=== PATIENT | female | born 1965 | race Caucasian/White ===

== ENCOUNTER 2019-09-10 15:48 | Emergency (ER) | payer OTHER ==
[~2019-09-10] VITALS: Ht 167.6 cm; Wt 80.3 kg
[2019-09-10] MEDS ORDERED: NORFLEX100MG (16:02)
== END 2019-09-10 17:23 | disposition home or self-care (01) ==
LOC: ER 15:48
DX: R07.89 Other chest pain (principal); M94.0 Chondrocostal junction syndrome [Tietze]; M62.838 Other muscle spasm

== ENCOUNTER 2019-11-29 07:45 | Outpatient (CLI) | payer OTHER ==
[~2019-11-29 07:45] MED LIST: NORFLEX100MG
== END 2019-11-29 07:49 | disposition home or self-care (01) ==
LOC: LAB 07:45
PROVIDERS: ATTEND General Practice
DX: E03.8 Other specified hypothyroidism (principal); Z12.89 Encounter for screening for malignant neoplasm of other sites; R53.81 Other malaise; R53.83 Other fatigue; E11.9 Type 2 diabetes mellitus without complications; K59.00 Constipation, unspecified; E55.9 Vitamin D deficiency, unspecified; E78.2 Mixed hyperlipidemia; D51.0 Vitamin B12 deficiency anemia due to intrinsic factor deficiency

== ENCOUNTER 2019-12-04 09:11 | Outpatient (CLI) | payer OTHER | END 2019-12-04 09:16 | disposition home or self-care (01) | LOC: LAB 09:11 | PROVIDERS: ATTEND General Practice | DX: R53.81 Other malaise (principal); R53.83 Other fatigue; K59.09 Other constipation; E55.9 Vitamin D deficiency, unspecified; E78.2 Mixed hyperlipidemia; E03.8 Other specified hypothyroidism; D51.0 Vitamin B12 deficiency anemia due to intrinsic factor deficiency; Z12.89 Encounter for screening for malignant neoplasm of other sites ==

== ENCOUNTER 2020-05-04 00:10 | Emergency (ER) | payer OTHER ==
[~2020-05-04] VITALS: Ht 167.6 cm; Wt 81.6 kg
[2020-05-04] MEDS ORDERED: SKELAXIN800 MG PO (05:24)
[2020-05-04] MEDS ORDERED: ACETAMINOPHEN500 M1 PO (05:24)
== END 2020-05-04 05:48 | disposition home or self-care (01) ==
LOC: ER 00:10
DX: M54.2 Cervicalgia (principal); M25.512 Pain in left shoulder; M54.6 Pain in thoracic spine; Z03.818 Encounter for observation for suspected exposure to other biological agents ruled out

== ENCOUNTER 2020-12-19 07:38 | Outpatient (CLI) | payer OTHER ==
[~2020-12-19 07:38] MED LIST changes: +ACETAMINOPHEN500 M1 PO; +SKELAXIN800 MG PO; +TYLENOL 120MG120 MG
== END 2020-12-19 07:39 | disposition home or self-care (01) ==
LOC: LAB 07:38
PROVIDERS: ATTEND Psychiatry & Neurology Neurology
DX: E03.8 Other specified hypothyroidism (principal); E78.2 Mixed hyperlipidemia; E11.9 Type 2 diabetes mellitus without complications; M79.7 Fibromyalgia

== ENCOUNTER 2021-05-06 08:40 | Outpatient (CLI) | payer OTHER | END 2021-05-06 08:42 | disposition home or self-care (01) | LOC: NUCLEAR 08:40 | PROVIDERS: ATTEND General Practice | DX: D18.09 Hemangioma of other sites (principal); M25.50 Pain in unspecified joint ==

== ENCOUNTER 2021-05-26 08:07 | Outpatient (CLI) | payer OTHER | END 2021-05-26 08:08 | disposition home or self-care (01) | LOC: LAB 08:07 | PROVIDERS: ATTEND General Practice | DX: E78.2 Mixed hyperlipidemia (principal) ==

== ENCOUNTER 2021-06-23 08:02 | Outpatient (CLI) | payer OTHER | END 2021-06-23 08:14 | disposition home or self-care (01) | LOC: SONOGRAMA 08:02 | PROVIDERS: ATTEND General Practice | DX: R10.11 Right upper quadrant pain (principal); N23 Unspecified renal colic ==

== ENCOUNTER 2021-08-19 06:00 | Day surgery (SDC) | payer OTHER ==
[~2021-08-19 06:00] MED LIST changes: +LIPIT PO
== END 2021-08-19 15:00 | disposition home or self-care (01) ==
LOC: CIR.AMB 06:00
PROVIDERS: ATTEND Surgery
DX: K80.10 Calculus of gallbladder with chronic cholecystitis without obstruction (principal); K82.8 Other specified diseases of gallbladder; Z88.0 Allergy status to penicillin; Z88.8 Allergy status to other drugs, medicaments and biological substances; M79.7 Fibromyalgia; F32.A Depression, unspecified; Z20.822 Contact with and (suspected) exposure to COVID-19

== ENCOUNTER 2021-12-23 08:49 | Outpatient (CLI) | payer OTHER | END 2021-12-23 08:59 | disposition home or self-care (01) | LOC: MAMO-SONO 08:49 | DX: Z12.39 Encounter for other screening for malignant neoplasm of breast (principal) ==

== ENCOUNTER 2022-02-10 07:42 | Outpatient (CLI) | payer OTHER | END 2022-02-10 07:43 | disposition home or self-care (01) | LOC: LAB 07:42 | PROVIDERS: ATTEND General Practice | DX: E78.2 Mixed hyperlipidemia (principal); R30.0 Dysuria; E55.9 Vitamin D deficiency, unspecified; E11.69 Type 2 diabetes mellitus with other specified complication; E03.9 Hypothyroidism, unspecified ==

== ENCOUNTER 2022-08-12 08:25 | Outpatient (CLI) | payer OTHER | END 2022-08-12 08:28 | disposition home or self-care (01) | LOC: NUCLEAR 08:25 | PROVIDERS: ATTEND General Practice | DX: I73.89 Other specified peripheral vascular diseases (principal); M79.661 Pain in right lower leg ==

== ENCOUNTER → 2022-08-12 | Outpatient (CLI) | payer OTHER | END | disposition home or self-care (01) | LOC: LAB 07:26 | DX: E78.2 Mixed hyperlipidemia (principal); R30.0 Dysuria; E03.9 Hypothyroidism, unspecified; E11.69 Type 2 diabetes mellitus with other specified complication; E55.9 Vitamin D deficiency, unspecified ==

== ENCOUNTER 2023-01-12 06:39 | Outpatient (CLI) | payer OTHER ==
[2023-01-12 07:54] LABS: URINE APPEARANCE Clear; URINE BILIRRUBIN Negative (NEGATIVE); URINE BLOOD Negative; URINE COLOR Yellow; URINE GLUCOSE Negative (NEGATIVE); URINE LEUKOCYTE Trace; URINE NITRATE Negative; URINE PROTEIN Negative (NEGATIVE); URINE UROBILINOGEN 0.2 E.U./dl
[2023-01-12 07:57] LABS: URINE BACTERIA 40.3 uL (0.0-1933); URINE EPITHELIAL CELLS 23.4 uL (0.0-38.8); URINE RBC 14.8 uL (0.0-20.8); URINE WBC 9.2 uL (0.0-23.2)
[2023-01-12 08:11] LABS: HEMATOCRIT 40.5 % (36.0-45.00); HEMOGLOBIN 13.9 g/dL (12.0-15.00); MEAN CELL VOLUME 89.6 fL (80.00-100.00); MEAN CORPUSCULAR HEMOGLOBIN 30.7 pg (27.00-32.0); MEAN CORPUSCULAR HGB CONC 34.3 g/dl (32.0-36.0); PLATELET COUNT 191 K/uL (150-450); RED BLOOD COUNT 4.52 M/uL (4.00-6.00); RED CELL DISTRIBUTION WIDTH 12.5 % (11.5-14.5)
[2023-01-12 09:03] LABS: ALBUMIN 3.5 gm/dL (3.4-5.0); BILIRUBIN TOTAL 0.49 mg/dL (0.3-1.2); CALCIUM 9.4 mg/dL (8.5-10.1); CHOL HDL RATIO 3.7 (0-5.0); CREATININE SERUM 0.9 mg/dL (0.55-1.02); FREE TRIODOTIRONINE 2.12 pg/ml (2.18-3.98); GFR 64.54; GLOBULINA 3.7 G/DL (2.4-3.5); POTASSIUM 3.32 mEq/L (3.5-5.1); T4 FREE 0.93 NG/ML (0.76-1.46); TOTAL PROTEIN 7.2 gm/dL (6.4-8.2); TSH 4.74 uIU/mL (0.358-3.74)
== END 2023-01-12 06:40 | disposition home or self-care (01) ==
LOC: LAB 06:39
PROVIDERS: ATTEND General Practice
DX: R30.0 Dysuria (principal); E03.9 Hypothyroidism, unspecified; E11.69 Type 2 diabetes mellitus with other specified complication; E55.9 Vitamin D deficiency, unspecified; Z88.6 Allergy status to analgesic agent

== ENCOUNTER 2023-01-12 08:24 | Outpatient (CLI) | payer OTHER | END 2023-01-12 08:30 | disposition home or self-care (01) | LOC: MAMO-SONO 08:24 | PROVIDERS: ATTEND General Practice | DX: Z12.31 Encounter for screening mammogram for malignant neoplasm of breast (principal); Z12.39 Encounter for other screening for malignant neoplasm of breast ==

== ENCOUNTER → 2023-03-25 06:34 | Outpatient (CLI) | payer OTHER ==
[2023-03-25 07:21] LABS: HEMATOCRIT 42.3 % (36.0-45.00); HEMOGLOBIN 14.5 g/dL (12.0-15.00); MEAN CELL VOLUME 89.5 fL (80.00-100.00); MEAN CORPUSCULAR HEMOGLOBIN 30.6 pg (27.00-32.0); MEAN CORPUSCULAR HGB CONC 34.2 g/dl (32.0-36.0); PLATELET COUNT 205 K/uL (150-450); RED BLOOD COUNT 4.72 M/uL (4.00-6.00); RED CELL DISTRIBUTION WIDTH 12.2 % (11.5-14.5)
[2023-03-25 07:23] LABS: PH,URINE 5.5 (5.0-8.0); URINE APPEARANCE Clear; URINE BILIRRUBIN Negative (NEGATIVE); URINE BLOOD Negative; URINE COLOR Yellow; URINE GLUCOSE Negative (NEGATIVE); URINE LEUKOCYTE Negative; URINE NITRATE Negative; URINE PROTEIN Negative (NEGATIVE); URINE UROBILINOGEN 0.2 E.U./dl
[2023-03-25 07:26] LABS: URINE BACTERIA 15.1 uL (0.0-1933); URINE EPITHELIAL CELLS 5.5 uL (0.0-38.8); URINE RBC 4.3 uL (0.0-20.8); URINE WBC 3.2 uL (0.0-23.2)
[2023-03-25 08:03] LABS: ALBUMIN 4.1 gm/dL (3.4-5.0); BILIRUBIN TOTAL 0.56 mg/dL (0.3-1.2); CALCIUM 9.2 mg/dL (8.5-10.1); CHOL HDL RATIO 2.5 (0-5.0); CREATININE SERUM 0.81 mg/dL (0.55-1.02); FREE TRIODOTIRONINE 2.43 pg/ml (2.18-3.98); GFR 72.88; GLOBULINA 3.3 G/DL (2.4-3.5); POTASSIUM 3.56 mEq/L (3.5-5.1); T4 FREE 1.03 NG/ML (0.76-1.46); TOTAL PROTEIN 7.4 gm/dL (6.4-8.2); TSH 1.38 uIU/mL (0.358-3.74)
== END | disposition home or self-care (01) ==
LOC: LAB 06:34
PROVIDERS: ATTEND General Practice
DX: E78.2 Mixed hyperlipidemia (principal); R30.0 Dysuria; E03.9 Hypothyroidism, unspecified; E11.9 Type 2 diabetes mellitus without complications; E55.9 Vitamin D deficiency, unspecified

== ENCOUNTER → 2023-06-07 07:31 | Outpatient (CLI) | payer OTHER ==
[2023-06-07 08:57] LABS: URINE APPEARANCE Clear; URINE BILIRRUBIN Negative (NEGATIVE); URINE BLOOD Negative; URINE COLOR Yellow; URINE GLUCOSE Negative (NEGATIVE); URINE LEUKOCYTE Trace; URINE NITRATE Negative; URINE PROTEIN Negative (NEGATIVE); URINE UROBILINOGEN 0.2 E.U./dl
[2023-06-07 08:58] LABS: URINE BACTERIA 49.1 uL (0.0-1933); URINE EPITHELIAL CELLS 15.7 uL (0.0-38.8); URINE RBC 2.4 uL (0.0-20.8); URINE WBC 6.4 uL (0.0-23.2)
[2023-06-07 09:18] LABS: HEMOGLOBIN 14.7 g/dL (12.0-15.00); MEAN CELL VOLUME 88.1 fL (80.00-100.00); MEAN CORPUSCULAR HEMOGLOBIN 30.9 pg (27.00-32.0); PLATELET COUNT 186 K/uL (150-450); RED BLOOD COUNT 4.77 M/uL (4.00-6.00); RED CELL DISTRIBUTION WIDTH 12.4 % (11.5-14.5)
[2023-06-07 09:38] LABS: ALBUMIN 3.8 gm/dL (3.4-5.0); BILIRUBIN TOTAL 0.54 mg/dL (0.3-1.2); CALCIUM 9.5 mg/dL (8.5-10.1); CHOL HDL RATIO 5.1 (0-5.0); CREATININE SERUM 0.83 mg/dL (0.55-1.02); FREE TRIODOTIRONINE 2.74 pg/ml (2.18-3.98); GFR 70.86; GLOBULINA 3.6 G/DL (2.4-3.5); POTASSIUM 4.17 mEq/L (3.5-5.1); T4 FREE 0.86 NG/ML (0.76-1.46); TOTAL PROTEIN 7.4 gm/dL (6.4-8.2); TSH 2.91 uIU/mL (0.358-3.74)
== END | disposition home or self-care (01) ==
LOC: LAB 07:31
DX: E78.2 Mixed hyperlipidemia (principal); R30.0 Dysuria; E03.9 Hypothyroidism, unspecified; E11.69 Type 2 diabetes mellitus with other specified complication; E55.9 Vitamin D deficiency, unspecified

== ENCOUNTER 2023-12-22 06:40 | Outpatient (CLI) | payer OTHER ==
[2023-12-22 09:00] LABS: CHOL HDL RATIO 4.9 (0-5.0)
== END 2023-12-22 06:44 | disposition home or self-care (01) ==
LOC: LAB 06:40
PROVIDERS: ATTEND General Practice
DX: E78.2 Mixed hyperlipidemia (principal)

== ENCOUNTER → 2024-04-06 07:13 | Outpatient (CLI) | payer OTHER ==
[2024-04-06 07:40] LABS: URINE APPEARANCE Clear; URINE BILIRRUBIN Negative (NEGATIVE); URINE BLOOD Negative; URINE COLOR Yellow; URINE GLUCOSE Negative (NEGATIVE); URINE KETONE Negative (NEGATIVE); URINE LEUKOCYTE Negative; URINE NITRATE Negative; URINE PROTEIN Negative (NEGATIVE); URINE UROBILINOGEN 0.2 E.U./dl
[2024-04-06 07:42] LABS: URINE BACTERIA 35.4 uL (0.0-1933); URINE EPITHELIAL CELLS 4.4 uL (0.0-38.8); URINE RBC 6.1 uL (0.0-20.8)
[2024-04-06 07:49] LABS: URINE CAST 0.14 uL (0.0-1.40)
[2024-04-06 07:50] LABS: HEMATOCRIT 42.6 % (36.0-45.00); HEMOGLOBIN 14.6 g/dL (12.0-15.00); MEAN CELL VOLUME 91.5 fL (80.00-100.00); MEAN CORPUSCULAR HEMOGLOBIN 31.3 pg (27.00-32.0); MEAN CORPUSCULAR HGB CONC 34.2 g/dl (32.0-36.0); PLATELET COUNT 231 K/uL (150-450); RED BLOOD COUNT 4.66 M/uL (4.00-6.00); RED CELL DISTRIBUTION WIDTH 12.7 % (11.5-14.5)
[2024-04-06 09:29] LABS: ALBUMIN 3.6 gm/dL (3.4-5.0); BILIRUBIN TOTAL 0.75 mg/dL (0.3-1.2); CALCIUM 9.3 mg/dL (8.5-10.1); CHOL HDL RATIO 4.3 (0-5.0); CREATININE SERUM 0.83 mg/dL (0.55-1.02); FREE TRIODOTIRONINE 3.11 pg/ml (2.18-3.98); GFR 70.61; GLOBULINA 3.1 G/DL (2.4-3.5); POTASSIUM 3.7 mEq/L (3.5-5.1); T4 FREE 0.99 NG/ML (0.76-1.46); TOTAL PROTEIN 6.7 gm/dL (6.4-8.2)
[2024-04-06 09:32] LABS: TSH 6.16 uIU/mL (0.358-3.74)
== END | disposition home or self-care (01) ==
LOC: LAB 07:13
PROVIDERS: ATTEND General Practice
DX: E55.9 Vitamin D deficiency, unspecified (principal); R80.9 Proteinuria, unspecified; E03.9 Hypothyroidism, unspecified; E78.2 Mixed hyperlipidemia; R30.0 Dysuria; E11.69 Type 2 diabetes mellitus with other specified complication

== ENCOUNTER 2024-05-25 08:43 | Outpatient (CLI) | payer OTHER | END 2024-05-25 08:52 | disposition home or self-care (01) | LOC: MAMO-SONO 08:43 | PROVIDERS: ATTEND General Practice | DX: Z12.31 Encounter for screening mammogram for malignant neoplasm of breast (principal); Z12.39 Encounter for other screening for malignant neoplasm of breast ==

== ENCOUNTER → 2024-06-26 07:16 | Outpatient (CLI) | payer OTHER ==
[2024-06-29 13:10] LABS: sjogrens ssa < 0.2 AI (0.0-0.9); sjogrens ssb < 0.2 AI (0.0-0.9)
[2024-06-29 15:06] LABS: CYCLIC CITRULLINE PEPTIDE 9 units (0-19)
== END | disposition home or self-care (01) ==
LOC: LAB 07:16
PROVIDERS: ATTEND Internal Medicine Rheumatology
DX: M06.4 Inflammatory polyarthropathy (principal); M05.79 Rheumatoid arthritis with rheumatoid factor of multiple sites without organ or systems involvement; M35.01 Sjogren syndrome with keratoconjunctivitis

== ENCOUNTER 2024-06-26 08:30 | Outpatient (CLI) | payer OTHER | END 2024-06-26 08:31 | disposition home or self-care (01) | LOC: NUCLEAR 08:30 | PROVIDERS: ATTEND Internal Medicine Rheumatology | DX: M81.0 Age-related osteoporosis without current pathological fracture (principal) ==

== ENCOUNTER 2024-07-20 07:26 | Outpatient (CLI) | payer OTHER ==
[2024-07-20 09:22] LABS: FREE TRIODOTIRONINE 2.6 pg/ml (2.18-3.98); T4 FREE 0.88 NG/ML (0.76-1.46); TSH 2.16 uIU/mL (0.358-3.74)
== END 2024-07-20 07:35 | disposition home or self-care (01) ==
LOC: LAB 07:26
DX: E03.9 Hypothyroidism, unspecified (principal)

== ENCOUNTER 2024-11-07 07:23 | Outpatient (CLI) | payer OTHER ==
[2024-11-07 07:55] LABS: URINE APPEARANCE Clear; URINE BILIRRUBIN Negative (NEGATIVE); URINE BLOOD Negative; URINE COLOR Yellow; URINE GLUCOSE Negative (NEGATIVE); URINE KETONE Negative (NEGATIVE); URINE LEUKOCYTE Negative; URINE NITRATE Negative; URINE PROTEIN Negative (NEGATIVE); URINE UROBILINOGEN 0.2 E.U./dl
[2024-11-07 07:57] LABS: URINE BACTERIA 26.3 uL (0.0-1933); URINE EPITHELIAL CELLS 5.6 uL (0.0-38.8); URINE RBC 12.7 uL (0.0-20.8); URINE WBC 2.0 uL (0.0-23.2)
[2024-11-07 08:00] LABS: BASO % 0.6 % (0.1-1.2); EOS # 0.05 (0.04-0.54); EOS % 1.5 % (0.7-7.0); LYMPH # 1.26 (1.18-3.74); LYMPH % 37.0 % (19.3-53.1); MEAN PLATELET VOLUME 10.90 fl (9.4-12.4); MONO # 0.19 (0.24-0.82); MONO % 5.6 % (4.7-12.5); NEUT # 1.88 (1.56-6.13); NEUT % 55.0 % (34.0-71.1); RED CELL DISTRIBUTION WIDTH 11.6 % (11.6-14.4)
[2024-11-07 08:04] LABS: URINE CAST 0.00 uL (0.0-1.40)
[2024-11-07 08:15] LABS: ERYTHROCYTE SEDIMENTATION RATE 4 mm/hr (0-30)
[2024-11-07 08:49] LABS: ALT/SGPT 26.0 U/L (12-78); AST/SGOT 16.0 U/L (15-37); BILIRUBIN TOTAL 0.47 mg/dL (0.3-1.2); BUN CREA RATIO 14.0 (7.0-25.0); CHOL HDL RATIO 3.1 (0-5.0); CREATININE SERUM 0.83 mg/dL (0.55-1.02); GFR 70.36; GLOBULINA 3.0 G/DL (2.4-3.5); GLUCOSE FASTING 110.0 mg/dL (65-100); HDL 68.0 mg/dl (40-60); LDL 122.0 mg/dl (0-130); OSMOLALITY SERUM 287.0 MOSM/KG (275-295); TSH 2.32 uIU/mL (0.358-3.74); VLDL 21.0 (0-39)
== END 2024-11-07 07:29 | disposition home or self-care (01) ==
LOC: LAB 07:23
DX: M06.4 Inflammatory polyarthropathy (principal); I10 Essential (primary) hypertension; E78.2 Mixed hyperlipidemia; E03.2 Hypothyroidism due to medicaments and other exogenous substances

== ENCOUNTER 2024-12-27 05:57 | Emergency (ER) | payer OTHER ==
[~2024-12-27] VITALS: Ht 167.6 cm; Wt 81.2 kg
[2024-12-27] MEDS ORDERED: [UNRECOGNIZED DRUG - OTHER] (06:10)
[2024-12-27] MEDS ORDERED: FAMOtidine 10 MG/ML (4ML VIAL) IV PUSH STA (07:31)
[2024-12-27] MEDS ORDERED: ORPHENADRINE CITRATE 30 MG/ML AMPUL IM STA (07:32)
[2024-12-27] MEDS ORDERED: ONDANSETRON HCL 2 MG/ML VIAL IV STA (07:32)
[2024-12-27] MEDS ORDERED: DEXAMETHASONE SODIUM PHOSPHATE 4 MG/ML VIAL IM STA (07:33)
[2024-12-27] MEDS ORDERED: ORPHENADRINE CITRATE 30 MG/ML AMPUL ONE (07:40)
[2024-12-27] MEDS ORDERED: DEXAMETHASONE SODIUM PHOSPHATE 4 MG/ML VIAL ONE (07:40)
[2024-12-27] MEDS ORDERED: ONDANSETRON HCL 2 MG/ML VIAL ONE (07:40)
[2024-12-27] MEDS ORDERED: FAMOTIDINE/PF 20 MG/2 ML VIAL ONE (07:41)
[2024-12-27 08:26] LABS: BASO % 0.8 % (0.1-1.2); EOS # 0.03 (0.04-0.54); EOS % 0.8 % (0.7-7.0); LYMPH # 1.07 (1.18-3.74); LYMPH % 29.7 % (19.3-53.1); MEAN PLATELET VOLUME 11.10 fl (9.4-12.4); MONO # 0.13 (0.24-0.82); MONO % 3.6 % (4.7-12.5); NEUT # 2.34 (1.56-6.13); NEUT % 65.1 % (34.0-71.1); RED CELL DISTRIBUTION WIDTH 11.7 % (11.6-14.4)
[2024-12-27 09:11] LABS: ALT/SGPT 24.0 U/L (12-78); AST/SGOT 16.0 U/L (15-37); BILIRUBIN TOTAL 0.5 mg/dL (0.3-1.2); BUN CREA RATIO 15.0 (7.0-25.0); CREATININE SERUM 0.8 mg/dL (0.55-1.02); GFR 73.41; GLOBULINA 3.3 G/DL (2.4-3.5); GLUCOSE FASTING 122.0 mg/dL (65-100); OSMOLALITY SERUM 282.0 MOSM/KG (275-295)
== END 2024-12-27 09:48 | disposition home or self-care (01) ==
LOC: ER 05:57
PROVIDERS: General Practice
DX: R10.84 Generalized abdominal pain (principal); M25.511 Pain in right shoulder; M25.512 Pain in left shoulder; K59.00 Constipation, unspecified; R07.89 Other chest pain; Z88.6 Allergy status to analgesic agent; Z88.0 Allergy status to penicillin; Z91.014 Allergy to mammalian meats; Z91.013 Allergy to seafood

== ENCOUNTER 2025-01-16 06:16 | Outpatient (CLI) | payer OTHER ==
[~2025-01-16 06:16] MED LIST changes: +[UNRECOGNIZED DRUG - OTHER]
[2025-01-16 07:51] LABS: BASO % 0.5 % (0.1-1.2); EOS # 0.04 (0.04-0.54); EOS % 1.1 % (0.7-7.0); LYMPH # 1.24 (1.18-3.74); LYMPH % 33.2 % (19.3-53.1); MEAN PLATELET VOLUME 10.80 fl (9.4-12.4); MONO # 0.21 (0.24-0.82); MONO % 5.6 % (4.7-12.5); NEUT # 2.22 (1.56-6.13); NEUT % 59.3 % (34.0-71.1); RED CELL DISTRIBUTION WIDTH 11.5 % (11.6-14.4)
== END 2025-01-16 06:17 | disposition home or self-care (01) ==
LOC: LAB 06:16
DX: D72.818 Other decreased white blood cell count (principal)

== ENCOUNTER 2025-03-02 06:54 | Outpatient (CLI) | payer OTHER ==
[2025-03-02 07:47] LABS: BASO % 0.4 % (0.1-1.2); EOS # 0.05 (0.04-0.54); EOS % 1.0 % (0.7-7.0); LYMPH # 1.60 (1.18-3.74); LYMPH % 32.3 % (19.3-53.1); MEAN PLATELET VOLUME 10.80 fl (9.4-12.4); MONO # 0.23 (0.24-0.82); MONO % 4.6 % (4.7-12.5); NEUT # 3.05 (1.56-6.13); NEUT % 61.5 % (34.0-71.1); RED CELL DISTRIBUTION WIDTH 11.6 % (11.6-14.4)
[2025-03-02 07:55] LABS: URINE APPEARANCE Clear; URINE BACTERIA 36.5 uL (0.0-1933); URINE BILIRRUBIN Negative (NEGATIVE); URINE BLOOD Negative; URINE COLOR Yellow; URINE EPITHELIAL CELLS 6.7 uL (0.0-38.8); URINE GLUCOSE Negative (NEGATIVE); URINE KETONE Negative (NEGATIVE); URINE LEUKOCYTE Negative; URINE NITRATE Negative; URINE PROTEIN Negative (NEGATIVE); URINE RBC 3.6 uL (0.0-20.8); URINE UROBILINOGEN 0.2 E.U./dl; URINE WBC 2.2 uL (0.0-23.2)
[2025-03-02 07:56] LABS: ERYTHROCYTE SEDIMENTATION RATE 8 mm/hr (0-30)
[2025-03-02 08:00] LABS: URINE CAST 0.00 uL (0.0-1.40)
[2025-03-02 09:10] LABS: ALT/SGPT 21.0 U/L (12-78); AST/SGOT 10.0 U/L (15-37); BILIRUBIN TOTAL 0.47 mg/dL (0.3-1.2); BUN CREA RATIO 19.0 (7.0-25.0); CHOL HDL RATIO 2.8 (0-5.0); CREATININE SERUM 0.77 mg/dL (0.55-1.02); FREE TRIODOTIRONINE 2.6 pg/ml (2.18-3.98); GFR 76.73; GLOBULINA 3.0 G/DL (2.4-3.5); GLUCOSE FASTING 119.0 mg/dL (65-100); HDL 70.0 mg/dl (40-60); LDH 149.0 U/L (84-246); LDL 106.0 mg/dl (0-130); OSMOLALITY SERUM 287.0 MOSM/KG (275-295); T4 TOTAL 7.15 UG/DL (4.8-13.9); TSH 2.02 uIU/mL (0.358-3.74); VLDL 19.0 (0-39)
[2025-03-02 11:52] LABS: VITAMIN D3 25 HYDROXY 32.3 ng/ml (30-120)
[2025-03-03 08:06] LABS: ANTI THYROID PEROXIDASE 12 IU/mL (0-34); HEPATITIS B CORE IGG Negative (Negative); HEPATITIS C VIRUS ANTIBODY Non Reactive (Non Reactive)
[2025-03-03 10:10] LABS: ESTRADIOL SERUM < 5.0 pg/mL (.)
== END 2025-03-02 07:50 | disposition home or self-care (01) ==
LOC: LAB 06:54
DX: D64.9 Anemia, unspecified (principal); E83.39 Other disorders of phosphorus metabolism; N39.0 Urinary tract infection, site not specified; R80.9 Proteinuria, unspecified; N95.1 Menopausal and female climacteric states; E04.1 Nontoxic single thyroid nodule; E55.9 Vitamin D deficiency, unspecified; E78.00 Pure hypercholesterolemia, unspecified; E08.00 Diabetes mellitus due to underlying condition with hyperosmolarity without nonketotic hyperglycemic-hyperosmolar coma (NKHHC); R19.5 Other fecal abnormalities; R97.8 Other abnormal tumor markers; E11.9 Type 2 diabetes mellitus without complications; K76.9 Liver disease, unspecified; D70.9 Neutropenia, unspecified; M06.9 Rheumatoid arthritis, unspecified; R31.9 Hematuria, unspecified; K74.60 Unspecified cirrhosis of liver; D89.0 Polyclonal hypergammaglobulinemia